=== PATIENT | female | born 1935 | race Caucasian/White ===

== ENCOUNTER → 2018-05-20 | Outpatient (CLI) | payer OTHER ==
[~2018-05-20] MED LIST: CIPROFLOXACIN500 M3 PO; CLONAZEPAM PO; COZAAR100 MG PO; FLAGYL500 MG PO; NORCO 5-325 TA1 EACH PO; NORVASC 5 MG TAB5 MG PO; OMEPRAZOLE 20 M20 MG PO; PROVENTIL; SERTRALINE HCL50 MG PO; SIMVASTATIN20 MG PO; SPIRIVA INH; TOPROL XL25 MG PO
--- NOTE | ~2018-05-20 | PATH ---
[facility] [address] [place] [address] PATHOLOGY RPT PROCEDURE Name: SOHAIL ESCOBEDO [place] Room #: REG MATTI Sidhu.#: [id number] Admission: 05/20/18 Date of : 33 Discharge: Report #: [id number] Path Case #: [id number] [facility] Accession Number: [id number] . 01 Material submitted: . BX GASTRITIS R/O H PYLORI . 01 Clinician provided ICD-10: R10.9 . 01 Clinical history: . Pre-OP DX: Abdominal pain Post-OP DX: Gastritis, esophagitis . 02 Diagnosis: Gastric mucosa, gastritis R/O H. pylori, endoscopic biopsy: - Moderate reactive gastropathy. - Negative for intestinal metaplasia or atrophy. - Negative for Helicobacter pylori (properly controlled immunohistochemical stain performed). . (IUV:kailash; 05/21/2018) QMS/05/21/2018 . 02 Electronically signed: . Odilia Barrera MD, Pathologist NPI- [id number] . 01 Gross description: . Received in formalin labeled "Sohail Escobedo, gastritis, rule out H. pylori," is a single segment of barlow soft tissue measuring 0.4 cm in maximum dimension. The specimen is entirely submitted in cassette A1. (TSD; 05/20/2018) TOB/TOB . 02 Pathologist provided ICD-10: K31.9 . 02 CPT . 913064, E78351 Specimen Comment: A courtesy copy of this report has been sent to Specimen Comment: [phone], . Specimen Comment: Report sent to / DR REY Performed at: [address] [id number] MD Berto Sosa MD Phone: [phone] [facility] [address] [place] [address] PATHOLOGY RPT PROCEDURE Name: SOHAIL ESCOBEDO V Room #: REG MATTI Mike#: [id number] Admission: 05/20/18 Date of : 33 Discharge: Report #: [id number] Path Case #: [id number] Performed at: [address] [id number] MD Odilia Barrera MD Phone: [phone]
--- NOTE | ~2018-05-20 | P ---
[facility] [address] [place] [address] PROCEDURE REPORT Name: SOHAIL ESCOBEDO V Room #: REG [facility]#: [id number] Admission: 05/20/18 Attend Phys: Luis Palmer Discharge: Date of : 33 Report #: [id number] THIS REPORT FOR: //name// CC: Adrien Todd DO Luis Goldberg DATE OF SERVICE: 05/20/2018 PROCEDURE PERFORMED: Upper endoscopy with biopsies. HISTORY OF PRESENT ILLNESS: The patient is an 82-year-old female, well known to me, with recent history of dark stool. She had been taking aspirin 81 mg, also decreased appetite in general. She had a previous history of upper endoscopy and colonoscopy by me 2 years ago. Mild gastritis was noted on upper endoscopy at that time. Plan is for EGD. CBC was just obtained. Her hemoglobin is 10.1, which has been stable. DESCRIPTION OF PROCEDURE: The risks and benefits of the procedure were explained to the patient; those risks including but not limited to bleeding, perforation and the risk of sedation. She understood these risks and gave informed consent. Sedation was given using propofol per anesthesia. Next, using a standard Olympus upper endoscope, the scope was placed in the patient's mouth and advanced under direct vision through the esophagus, stomach and into the second portion of the duodenum. The larynx was normal in appearance. The upper and mid esophagus were normal in appearance. In the distal esophagus, grade A erosive esophagitis was noted. No evidence of bleeding. In the stomach, there was a diffuse [id number] gastritis. A few erosions were noted in the gastric antrum. Biopsies were obtained. No evidence of blood throughout the exam today. The pylorus was normal and patent. The duodenal bulb, first and second portion were all normal. The scope was then withdrawn and the procedure terminated. The patient tolerated the procedure well. IMPRESSION: 1. Grade A erosive esophagitis. 2. Gastritis with small erosions. 3. Otherwise, normal upper endoscopy. RECOMMENDATIONS: 1. Await biopsy results. 2. Would recommend continuing to hold aspirin at this time. 3. We will do Hemoccult test stools. 4. Continue daily PPI therapy, which was just started yesterday. [address] [address] PROCEDURE REPORT Name: SOHAIL ESCOBEDO V Room #: REG [facility] Rashid#: [id number] Admission: 05/20/18 Attend Phys: Luis Palmer Discharge: Date of : 33 Report #: [id number] Thank you for allowing me to participate in her care. <ELECTRONICALLY SIGNED> By: Luis Goldberg MD 05/22/18 0845 [id number] [id number] Luis Goldberg MD /nt
[2018-05-20 09:59] LABS: HEMATOCRIT 30.9 % (37.0-47.0); HEMOGLOBIN 10.9 gm/dL (12.0-15.0); MCH 35.1 pg (26.0-34.0); MCHC 35.3 g/dL (28.0-37.0); MCV 99.4 fL (80.0-100.0); RBC 3.11 mil/uL (4.20-5.00); RDW 13.9 % (10.5-14.5); WBC 6.4 thou/uL (4.0-11.0)
== END | disposition home or self-care (01) ==
LOC: GI 08:57
PROVIDERS: Specialist
DX: K29.60 Other gastritis without bleeding (principal); K22.10 Ulcer of esophagus without bleeding; K31.9 Disease of stomach and duodenum, unspecified; Z79.82 Long term (current) use of aspirin; Z79.899 Other long term (current) drug therapy
CPT/HCPCS: 62110; 62900